=== PATIENT | male | born 1995 | race African-American/Black ===

== ENCOUNTER 2021-09-08 18:52 | Emergency (ER) | payer BC ==
[~2021-09-08] VITALS: Ht 167.6 cm; Wt 104.6 kg
[2021-09-09] MEDS ORDERED: KETOROLAC 30 MG/ML 1ML VIAL IM ONE (00:40)
[2021-09-09] MEDS ORDERED: BOOSTRIX/ADACEL VACCINE (DIPHTH/PERTUSS/ACELL/TETANUS) 0.5ML SYR IM ONE (00:40)
[2021-09-09] MEDS ORDERED: BACITRACIN OINTMENT 30GM TUBE TOP ONE (00:45)
[2021-09-09 02:55] VITALS: BP 119/65
== END 2021-09-09 03:10 | disposition home or self-care (01) ==
LOC: EDBD 18:52 → M ED 18:52
DX: S00.81XA Abrasion of other part of head, initial encounter (principal); S00.83XA Contusion of other part of head, initial encounter; V86.55XA Driver of 3- or 4- wheeled all-terrain vehicle (ATV) injured in nontraffic accident, initial encounter; Y92.89 Other specified places as the place of occurrence of the external cause